=== PATIENT | male | born 1960 | race Caucasian/White ===

== ENCOUNTER 2016-09-29 06:27 | Day surgery (SDC) | payer OTHER ==
[~2016-09-29] VITALS: Ht 190.5 cm; Wt 97.7 kg
[~2016-09-29 06:27] MED LIST: COREG6.25 M1 PO; LASIX40 MG PO; LEVOXYL150 MCG PO; ONE DAILY TABL1 EAC1 PO; TAMBOCOR50 MG PO; XARELTO20 MG PO
[2016-09-29 07:04] VITALS: BP 132/83
[2016-09-29] MEDS ORDERED: PERCOCET 5/31 TABLET PO (09:47)
[2016-09-29 10:25] VITALS: BP 130/80
[2016-09-29 11:45] VITALS: BP 120/70
== END 2016-09-29 11:56 | disposition home or self-care (01) ==
LOC: SDC 06:27
PROC: 0YU50JZ Supplement Right Inguinal Region with Synthetic Substitute, Open Approach (ICD-10-PCS; principal; 2016-09-29)
DX: K40.90 Unilateral inguinal hernia, without obstruction or gangrene, not specified as recurrent (principal); E03.9 Hypothyroidism, unspecified; I48.91 Unspecified atrial fibrillation; Z85.828 Personal history of other malignant neoplasm of skin; Z87.891 Personal history of nicotine dependence; Z80.41 Family history of malignant neoplasm of ovary; Z80.0 Family history of malignant neoplasm of digestive organs
CPT/HCPCS: C1781; J0690; J1100; J1885; J2250; J2405; J3010